=== PATIENT | male | born 1970 | race Caucasian/White ===

== ENCOUNTER 2017-01-01 14:00 | Outpatient (RCR) | payer OTHER | END 2017-01-10 | disposition home or self-care (01) | LOC: PTY 14:00 | DX: G35 Multiple sclerosis (principal); S76.219A Strain of adductor muscle, fascia and tendon of unspecified thigh, initial encounter; S79.812A Other specified injuries of left hip, initial encounter; S79.811A Other specified injuries of right hip, initial encounter ==

== ENCOUNTER 2017-01-20 15:30 | Outpatient (RCR) | payer OTHER | END 2017-02-10 | disposition home or self-care (01) | LOC: PTY 15:30 | DX: G35 Multiple sclerosis (principal); R53.1 Weakness ==